=== PATIENT | female | born 1960 | race Caucasian/White ===

== ENCOUNTER → 2016-04-24 | Outpatient (CLI) | payer OTHER | LOC: BMCIMAGING 10:03 | PROVIDERS: ATTEND Orthopaedic Surgery Orthopaedic Surgery of the Spine | DX: M51.37 Other intervertebral disc degeneration, lumbosacral region (principal) ==

== ENCOUNTER → 2016-08-18 | Outpatient (CLI) | payer OTHER | LOC: FIMAGING 10:00 | PROVIDERS: ATTEND Internal Medicine Endocrinology, Diabetes & Metabolism | DX: Z13.820 Encounter for screening for osteoporosis (principal); M85.80 Other specified disorders of bone density and structure, unspecified site; E05.90 Thyrotoxicosis, unspecified without thyrotoxic crisis or storm ==

== ENCOUNTER → 2017-12-01 | Outpatient (CLI) | payer OTHER | LOC: BMCIMAGING 09:16 | PROVIDERS: ATTEND Internal Medicine | DX: Z12.31 Encounter for screening mammogram for malignant neoplasm of breast (principal) ==